=== PATIENT | male | born 1990 | race Caucasian/White ===

== ENCOUNTER → 2020-07-14 10:07 | Outpatient (BNVA) | payer OTHER, SELFPAY | PROVIDERS: Family Provider Family Medicine; PCP Family Medicine; Visit Provider Urology | DX: Z12.5 Encounter for screening for malignant neoplasm of prostate (principal); N34.2 Other urethritis; R79.89 Other specified abnormal findings of blood chemistry; E29.1 Testicular hypofunction | CPT/HCPCS: 81003; 84403; G0103 ==

== ENCOUNTER 2020-07-22 14:15 | Outpatient (CLI) | payer OTHER, SELFPAY ==
[2020-07-22 15:15] LABS: PH Semen 8.5 (7.0-8.0)
[2020-07-22 15:16] LABS: Epithelial Count Semen 0-4 /hpf; Red Blood Count Semen 0-4 /hpf; Sperm Immotility 0 % (50-60); Sperm Non-Progressive Motility 0 % (5-10); Sperm Progressive Motility 0 % (31-34); Sperm Vitality-% Live Sperm 0 %; Viscosity Semen Normal; White Blood Count Semen 0-4 /hpf
[2020-07-22 15:17] LABS: Pathology Referral Yes
== END 2020-07-22 14:16 | disposition home or self-care (01) ==
PROVIDERS: PCP Family Medicine; Visit Provider Urology
DX: E29.1 Testicular hypofunction (principal)
CPT/HCPCS: 80500; 89320

== ENCOUNTER → 2020-08-07 09:51 | Outpatient (BNVA) | payer OTHER, SELFPAY | PROVIDERS: PCP Family Medicine; Referring Provider Urology; Visit Provider Internal Medicine | DX: E23.7 Disorder of pituitary gland, unspecified (principal); R79.89 Other specified abnormal findings of blood chemistry | CPT/HCPCS: 99204 ==

== ENCOUNTER 2021-03-06 08:11 | Outpatient (CLI) | payer OTHER, SELFPAY ==
[2021-03-06 08:35] LABS: Basophils # 0.1 10^3/uL (0.0-0.1); Basophils % 0.8 %; Eosinophils # 0.2 10^3/uL (0.0-0.8); Eosinophils % 2.5 %; Hematocrit 43.5 % (42.0-52.0); Hemoglobin 14.1 g/dL (11.7-16.6); Lymphocytes # 1.6 10^3/uL (0.8-4.8); Lymphocytes % 24.3 %; Mean Corpuscular HGB Conc 32.4 g/dL (30.0-36.0); Mean Corpuscular Hemoglobin 27.4 pg (28.0-34.0); Mean Corpuscular Volume 84.5 fl (80-94); Monocytes # 0.6 10^3/uL (0.2-0.9); Monocytes % 8.9 %; Neutrophils # 4.06 10^3/uL (1.8-7.7); Neutrophils % 63.2 %; Nucleated Red Blood Cells % 0 %; Platelet Count 250 10^3/cmm (130-400); Red Blood Count 5.15 10^6/uL (4.1-5.3); Red Cell Distribution Width 13.3 % (12.1-15.1); White Blood Count 6.4 10^3/uL (4.0-10.0)
[2021-03-06 08:57] LABS: Alanine Aminotransferase 24 U/L (0-41); Albumin Level 4.2 g/dL (3.5-5.2); Alkaline Phosphatase 48 IU/L (40-130); Anion Gap 15.1 (5-19); Aspartate Amino Transferase 18 U/L (0-40); Blood Urea Nitrogen 18 mg/dL (6-20); Calcium 8.8 mg/dL (8.5-10.5); Carbon Dioxide 23 mmol/L (22-29); Chloride 104 mmol/L (98-107); Globulin 2.5 g/dL (1.3-4.6); Glomerular Filtration Rate 113.5 mL/min (90-130); Glucose 84 mg/dL (65-115); Osmolality Calculated 287 mOsm/kg (285-295); Potassium 4.1 mmol/L (3.5-5.1); Sodium 138 mmol/L (136-145); Total Bilirubin 0.4 mg/dL (0.15-1.2); Total Protein 6.7 g/dL (6.6-8.7)
[2021-03-06 09:04] LABS: Testosterone Total 153.3 ng/dL (249-836)
[2021-03-10 15:34] LABS: Testosterone, Free 27.1 pg/mL (46.0-224.0)
== END 2021-03-06 08:12 | disposition home or self-care (01) ==
LOC: LAB 08:14
PROVIDERS: PCP Family Medicine; Visit Provider Internal Medicine
DX: E23.7 Disorder of pituitary gland, unspecified (principal); R79.89 Other specified abnormal findings of blood chemistry
CPT/HCPCS: 80053; 84402; 84403; 85025

== ENCOUNTER → 2021-03-12 10:47 | Outpatient (BNVA) | payer OTHER, SELFPAY | PROVIDERS: PCP Family Medicine; Visit Provider Internal Medicine | DX: R79.89 Other specified abnormal findings of blood chemistry (principal); N52.9 Male erectile dysfunction, unspecified; E29.1 Testicular hypofunction | CPT/HCPCS: 99214 ==

== ENCOUNTER 2021-04-17 07:46 | Outpatient (CLI) | payer OTHER, SELFPAY ==
[2021-04-17 08:05] LABS: Basophils # 0.1 10^3/uL (0.0-0.1); Basophils % 0.9 %; Eosinophils # 0.2 10^3/uL (0.0-0.8); Eosinophils % 2.5 %; Hematocrit 43.3 % (42.0-52.0); Hemoglobin 14.2 g/dL (11.7-16.6); Lymphocytes # 1.8 10^3/uL (0.8-4.8); Lymphocytes % 23.4 %; Mean Corpuscular HGB Conc 32.8 g/dL (30.0-36.0); Mean Corpuscular Hemoglobin 27.8 pg (28.0-34.0); Mean Corpuscular Volume 84.7 fl (80-94); Monocytes # 0.7 10^3/uL (0.2-0.9); Monocytes % 8.3 %; Neutrophils # 5.06 10^3/uL (1.8-7.7); Neutrophils % 64.4 %; Nucleated Red Blood Cells % 0 %; Platelet Count 244 10^3/cmm (130-400); Red Blood Count 5.11 10^6/uL (4.1-5.3); Red Cell Distribution Width 13.2 % (12.1-15.1); White Blood Count 7.9 10^3/uL (4.0-10.0)
[2021-04-17 08:26] LABS: Anion Gap 18.3 (5-19); Blood Urea Nitrogen 15 mg/dL (6-20); Calcium 8.6 mg/dL (8.5-10.5); Carbon Dioxide 21 mmol/L (22-29); Chloride 106 mmol/L (98-107); Glomerular Filtration Rate 113.5 mL/min (90-130); Glucose 88 mg/dL (65-115); Osmolality Calculated 292 mOsm/kg (285-295); Potassium 4.3 mmol/L (3.5-5.1); Sodium 141 mmol/L (136-145)
[2021-04-17 08:32] LABS: Testosterone Total 275.7 ng/dL (249-836)
== END 2021-04-17 07:47 | disposition home or self-care (01) ==
PROVIDERS: PCP Family Medicine; Visit Provider Internal Medicine
DX: R79.89 Other specified abnormal findings of blood chemistry (principal)
CPT/HCPCS: 36415; 80048; 84403; 85025

== ENCOUNTER 2021-06-19 07:45 | Outpatient (CLI) | payer OTHER, SELFPAY ==
[2021-06-19 08:46] LABS: Basophils # 0.1 10^3/uL (0.0-0.1); Eosinophils # 0.2 10^3/uL (0.0-0.8); Eosinophils % 2.4 %; Hematocrit 45.8 % (42.0-52.0); Hemoglobin 14.9 g/dL (11.7-16.6); Lymphocytes # 2.2 10^3/uL (0.8-4.8); Lymphocytes % 26.8 %; Mean Corpuscular HGB Conc 32.5 g/dL (30.0-36.0); Mean Corpuscular Hemoglobin 27.1 pg (28.0-34.0); Mean Corpuscular Volume 83.4 fl (80-94); Mean Platelet Volume 10.2 fL (7.4-10.4); Monocytes # 0.7 10^3/uL (0.2-0.9); Monocytes % 8.5 %; Neutrophils # 5.02 10^3/uL (1.8-7.7); Neutrophils % 61.1 %; Nucleated Red Blood Cells % 0 %; Platelet Count 299 10^3/cmm (130-400); Red Blood Count 5.49 10^6/uL (4.1-5.3); Red Cell Distribution Width 12.5 % (12.1-15.1); White Blood Count 8.2 10^3/uL (4.0-10.0)
[2021-06-19 09:11] LABS: Testosterone Total 388.9 ng/dL (249-836)
== END 2021-06-19 07:46 | disposition home or self-care (01) ==
PROVIDERS: PCP Family Medicine; Visit Provider Internal Medicine
DX: N52.9 Male erectile dysfunction, unspecified (principal); R79.89 Other specified abnormal findings of blood chemistry
CPT/HCPCS: 36415; 84403; 85025; G0103

== ENCOUNTER 2021-06-21 17:51 | Outpatient (CLI) | payer OTHER, SELFPAY ==
[2021-06-21 18:46] LABS: PH Semen 8.5 (7.0-8.0); Sperm Immotility 40 % (50-60); Sperm Non-Progressive Motility 10 % (5-10); Sperm Progressive Motility 50 % (31-34); Viscosity Semen Droplets; Volume Semen 2.5 mL (2-5)
[2021-06-21 18:47] LABS: Pathology Referral Yes
[2021-06-21 18:50] LABS: Side 1 21; Side 2 22; Sperm Count 21.5 mill/mL (40-160)
[2021-06-21 18:51] LABS: Side WITHIN 10% 5
== END 2021-06-21 17:52 | disposition home or self-care (01) ==
LOC: LAB 17:53
PROVIDERS: PCP Family Medicine; Visit Provider Internal Medicine
DX: N52.9 Male erectile dysfunction, unspecified (principal); R79.89 Other specified abnormal findings of blood chemistry
CPT/HCPCS: 80500; 89320

== ENCOUNTER 2021-09-18 07:40 | Outpatient (CLI) | payer OTHER, SELFPAY ==
[2021-09-18 08:29] LABS: Testosterone Total 324.2 ng/dL (249-836)
== END 2021-09-18 07:41 | disposition home or self-care (01) ==
PROVIDERS: PCP Family Medicine; Visit Provider Internal Medicine
DX: N52.9 Male erectile dysfunction, unspecified (principal); E29.1 Testicular hypofunction
CPT/HCPCS: 84403

== ENCOUNTER 2021-11-05 08:04 | Outpatient (CLI) | payer OTHER, SELFPAY ==
[2021-11-05 08:33] LABS: Basophils # 0.1 10^3/uL (0.0-0.1); Basophils % 0.9 %; Eosinophils # 0.3 10^3/uL (0.0-0.8); Hematocrit 41.8 % (42.0-52.0); Hemoglobin 13.9 g/dL (11.7-16.6); Lymphocytes # 1.9 10^3/uL (0.8-4.8); Lymphocytes % 21.7 %; Mean Corpuscular HGB Conc 33.3 g/dL (30.0-36.0); Mean Corpuscular Hemoglobin 27.2 pg (28.0-34.0); Mean Corpuscular Volume 81.8 fl (80-94); Mean Platelet Volume 10.2 fL (7.4-10.4); Monocytes # 0.6 10^3/uL (0.2-0.9); Monocytes % 6.4 %; Neutrophils # 5.91 10^3/uL (1.8-7.7); Neutrophils % 67.7 %; Nucleated Red Blood Cells % 0 %; Platelet Count 265 10^3/cmm (130-400); Red Blood Count 5.11 10^6/uL (4.1-5.3); Red Cell Distribution Width 13.2 % (12.1-15.1); White Blood Count 8.7 10^3/uL (4.0-10.0)
== END 2021-11-05 08:05 | disposition home or self-care (01) ==
LOC: LAB 08:05
PROVIDERS: PCP Family Medicine; Visit Provider Internal Medicine
DX: R79.89 Other specified abnormal findings of blood chemistry (principal)
CPT/HCPCS: 84403; 85025

== ENCOUNTER 2022-01-14 07:57 | Outpatient (CLI) | payer OTHER, SELFPAY ==
[2022-01-14 08:26] LABS: Basophils # 0.1 10^3/uL (0.0-0.1); Basophils % 0.8 %; Eosinophils # 0.2 10^3/uL (0.0-0.8); Eosinophils % 2.2 %; Hematocrit 44.6 % (42.0-52.0); Hemoglobin 14.3 g/dL (11.7-16.6); Lymphocytes # 1.4 10^3/uL (0.8-4.8); Lymphocytes % 19.7 %; Mean Corpuscular HGB Conc 32.1 g/dL (30.0-36.0); Mean Corpuscular Hemoglobin 27.3 pg (28.0-34.0); Mean Corpuscular Volume 85.1 fl (80-94); Monocytes # 0.7 10^3/uL (0.2-0.9); Monocytes % 9.1 %; Neutrophils # 4.89 10^3/uL (1.8-7.7); Neutrophils % 67.8 %; Nucleated Red Blood Cells % 0 %; Platelet Count 235 10^3/cmm (130-400); Red Blood Count 5.24 10^6/uL (4.1-5.3); Red Cell Distribution Width 13.6 % (12.1-15.1); White Blood Count 7.2 10^3/uL (4.0-10.0)
[2022-01-14 08:52] LABS: Testosterone Total 297.2 ng/dL (249-836)
== END 2022-01-14 07:58 | disposition home or self-care (01) ==
PROVIDERS: PCP Family Medicine; Visit Provider Internal Medicine
DX: R53.83 Other fatigue (principal); R79.89 Other specified abnormal findings of blood chemistry
CPT/HCPCS: 36415; 84403; 85025

== ENCOUNTER 2022-09-06 16:22 | Inpatient (IN) | payer OTHER, MEDICAID, SELFPAY ==
[2022-09-06 16:29] VITALS: BP 135/91; PULSE 80; RESP 16; TEMP 36.6; O2SAT 98; BMI 40.1
--- NOTE | 2022-09-06 17:23 | ED.C_ITS ---
HPI - Psych General: Chief Complaint: Psychiatric Symptoms Stated Complaint: MHE Time Seen by Provider: 09/06/22 17:22 Source: patient Mode of arrival: ambulatory History of Present Illness: 32-year-old male presents to the emergency room complaining of suicidal ideation. He says its been going on for a week it is better today he denies any plan or specific intent has just been considering it for the last week. He states been precipitated by stress at work flight with his family members friends and a injection machine operator convinced him to come in today. He is on Zoloft they have not change the dose at all recently he has never previously been admitted to psychiatry or been evaluated for suicidal ideation. MD complaint: suicidal ideation and feels depressed Onset (ago): week(s) (1) Relieving factors: none Exacerbating factors: none Associated psychiatric symptoms: none Associated symptoms: Deny auditory hallucinations, visual hallucinations, delusions, depression, homicidal ideation, suicidal ideation or racing thoughts Treatments prior to arrival: none Review of Systems Const: Denies: fever(s), chills, body aches, change in appetite, fatigue or m alaise ENMT: Denies: throat pain, ear or mastoid pain, nasal discharge or nasal congestion Card: Denies: chest pain, edema, dyspnea on exertion or orthopnea Resp: Denies: dyspnea, productive cough or non-productive cough GI: Denies: abdominal pain, nausea, vomiting, hematemesis, coffee ground emesis, diarrhea, constipation, bloating, hematochezia or melena : Denies: flank pain, dysuria, urinary frequency or urinary urgency Skin/Breast: Denies: rash or pruritus Psych: Denies: depression, visual hallucinations, auditory hallucinations, suicidal ideation or homicidal ideation PFSH ED PFSH: Medical History Anxiety disorder Erectile dysfunction Esophageal stricture Hypogonadism Low testosterone in male Peptic ulcer disease Urethritis Surgical History H/O knee surgery S/P dilatation of esophageal stricture Family History Family/Other CAD (coronary artery disease) Cancer Diabetes Social History (Reviewed 09/06/22 @ 17:31 by MILO Lai Smoking and tobacco status: never smoked Second hand smoke exposure: No Alcohol intake: never Physical Exam Const: GENERAL APPEARANCE: cooperative and comfortable ORIENTATION/CONSCIOUSNESS: Yes awake, Yes oriented to person, Yes oriented to place and Yes oriented to time HENMT: COMMON NORMALS: normocephalic, atraumatic and hearing grossly normal bilaterally HEAD & SCALP: normocephalic and atraumatic Resp: COMMON NORMALS: normal respiratory effort, No retractions, No use of accessory muscles and clear to auscultation bilaterally AUSCULTATION: clear to auscultation bilaterally Cardio: COMMON NORMALS: regular rate, regular rhythm and No murmurs present (Cardio) RATE: regular rate RHYTHM: regular rhythm GI: COMMON NORMALS: Soft to palpation and No hepatosplenomegaly present AUSCULTATION: Yes normoactive bowel sounds PALPATION: Yes Soft to palpation, No Tenderness to palpation present (GI), No Guarding due to palpation present (GI) and Yes No hepatosplenomegaly present Extremity: COMMON NORMALS: normal to inspection, capillary refill normal, no clubbing, cyanosis or edema, no calf tenderness and no pedal edema Neuro: SENSORIUM/ORIENTATION: Yes oriented to person, Yes oriented to place and Yes oriented to time Psych: THOUGHT CONTENT: No delusions Skin: COMMON NORMALS: no rashes or lesions noted GENERAL SKIN EXAM: no rashes or lesions noted Course Vital Signs: Vital signs: Vital Signs Temperature 97.9 F 09/06/22 16:29 Pulse Rate 80 09/06/22 16:29 Respiratory Rate 16 09/06/22 16:29 Blood Pressure 135/91 09/06/22 16:29 Pulse Oximetry 98 09/06/22 16:29 Oxygen Delivery Me thod Room Air 09/06/22 16:29 MDM - Psych Medical Decision Making Suicidal ideation for a week. Concerned this patient has been progressing enough that he finally did come in. Is not previously had psychiatric admissions and he is on moderate dose of Zoloft. Discussed Dr. Mathias will admit for depression and suicidal ideation. Medical Records I reviewed the patient's medical records. Lab Data I reviewed the patient's lab results. Discharge Plan Discharge Patient Disposition: Admitted As Inpatient Clinical Impression: Suicidal ideation, Depression Condition: Stable Coding Level of Care Code ED Hunting And Fishing Guide for Jose Carlos Powell
[2022-09-06 17:51] LABS: Basophils % 0.4 %; Eosinophils # 0.2 10^3/uL (0.0-0.8); Eosinophils % 1.6 %; Hematocrit 46.7 % (42.0-52.0); Hemoglobin 15.2 g/dL (11.7-16.6); Lymphocytes # 1.9 10^3/uL (0.8-4.8); Lymphocytes % 17.5 %; Mean Corpuscular HGB Conc 32.5 g/dL (30.0-36.0); Mean Corpuscular Hemoglobin 26.7 pg (28.0-34.0); Mean Corpuscular Volume 81.9 fl (80-94); Mean Platelet Volume 10.1 fL (7.4-10.4); Monocytes # 0.8 10^3/uL (0.2-0.9); Monocytes % 6.9 %; Neutrophils # 8.14 10^3/uL (1.8-7.7); Neutrophils % 73.3 %; Nucleated Red Blood Cells % 0 %; Platelet Count 328 10^3/cmm (130-400); Red Cell Distribution Width 13.5 % (12.1-15.1); White Blood Count 11.1 10^3/uL (4.0-10.0)
[2022-09-06 18:05] LABS: Alanine Aminotransferase 48 U/L (0-41); Albumin Level 4.6 g/dL (3.5-5.2); Alkaline Phosphatase 67 U/L (40-130); Anion Gap 15.9 (5-19); Aspartate Amino Transferase 29 U/L (0-40); Blood Urea Nitrogen 10 mg/dL (6-20); Calcium 9.6 mg/dL (8.5-10.5); Carbon Dioxide 26 mmol/L (22-29); Chloride 98 mmol/L (98-107); Globulin 3.1 g/dL (1.3-4.6); Glomerular Filtration Rate 97.8 mL/min (90-130); Glucose 89 mg/dL (65-115); Osmolality Calculated 281 mOsm/kg (285-295); Potassium 3.9 mmol/L (3.5-5.1); Sodium 136 mmol/L (136-145); Total Bilirubin 0.6 mg/dL (0.15-1.2); Total Protein 7.7 g/dL (6.6-8.7)
[2022-09-06 18:08] LABS: Acetaminophen < 5.0 ug/mL (10-30); Alcohol Level < 10 mg/dL (0-10); Salicylate < 0.3 mg/dL (3-10)
[2022-09-06 18:36] VITALS: BP 133/86; PULSE 80; RESP 18; TEMP 36.6
[2022-09-06 20:24] VITALS: BP 109/72; PULSE 87; RESP 18; TEMP 36.6; O2SAT 98
[2022-09-07 06:00] VITALS: RESP 15
--- NOTE | 2022-09-07 13:26 | W.PM.NPUH&PS ---
Providers/Chief Complaint Admitting Physician: Judd Mathias MD Primary Care Provider: Dom Jones Chief Complaint: MHE HPI NPU History of Present Illness Bhanu Gipson is a 32 year old male who presented to the emergency department with the following report: Chief Complaint: Psychiatric Symptoms Stated Complaint: MHE Time Seen by Provider: 09/06/22 17:22 Source: patient Mode of arrival: ambulatory History of Present Illness: 32-year-old male presents to the emergency room complaining of suicidal ideation. He says its been going on for a week it is better today he denies any plan or specific intent has just been considering it for the last week. He states been precipitated by stress at work flight with his family members friends and a construction operations manager convinced him to come in today. He is on Zoloft they have not change the dose at all recently he has never previously been admitted to psychiatry or been evaluated for suicidal ideation. MD complaint: suicidal ideation and feels depressed Onset (ago): week(s) (1) Relieving factors: none Exacerbating factors: none Associated psychiatric symptoms: none Associated symptoms: Deny auditory hallucinations, visual hallucinations, delusions, depression, homicidal ideation, suicidal ideation or racing thoughts Treatments prior to arrival: none. He was admitted to the neuropsychiatric unit for definitive treatment of those issues. He reports that he is on Zoloft 100 mg and has only had 1 increased to that dose in the 7 years he has been taking it. The patient presents today reporting recently he has been stressing out and having some abnormal behavior which led to this hospital visit. He denies any previous psychiatric hospitalizations. The patient reports he has had some outpatient services, and he started taking the Zoloft about seven years ago. He has not been on any other psychiatric medications. He denies tobacco use. He reports very occasional alcohol use. He denies marijuana, or any other illicit drug use. He has never been to a drug rehabilitation or had a DUI. He has never had any drug-related charges. The patient reports that seven years ago he was having issues with anger and irritability, often arguing and yelling, and was having a very difficult time controlling his anger. This led to him getting help and being put on the Zoloft, which he reports has been helpful. The patient denies feelings of hopelessness, helplessness, or worthlessness. He denies any sleep issues or loss of enjoyment in activities. He denies passive wish. He reports some suicidal thoughts recently related to stress. He denies any self-injurious behavior. He endorses that his symptoms are related to low-frustration tolerance and an inability to manage those feelings, which has led to unusual behavior for him in how he interacts with others. He denies any auditory or visual hallucinations or paranoia. He denies any nightmares or flashbacks. He reports having some anxiety symptoms in the last couple of weeks related to frustrating situations in his life. PSYCHIATRIC HISTORY: As above. SUBSTANCE ABUSE HISTORY: As above. FAMILY HISTORY: The patient denies any mental health issues in his family. He reports an uncle on his mother?s side of the family had a drinking problem. He denies any suicide attempts or completions. DEVELOPMENTAL HISTORY: The patient denies any issues with his mother?s or delivery of him. He reports that he learned to walk and talk and met his developmental milestones on time. The patient endorses speech therapy in elementary school and some learning support for reading. PSYCHOSOCIAL HISTORY: The patient reports that his mother and father were together when he was born and remain together. He reports he has an older brother who is also from that union. He reports neither of his parents have any other children. He describes his childhood as great. He denies any emotional, physical, or sexual abuse. He reports he experienced some bullying in middle school but denies any major traumatic events. He reports that he graduated from high school and had two semesters in college. He endorses being heterosexual, with his longest relationship being with his of ten years. He reports that he has a 3-year-old daughter and a 7-month-old son. He denies any involvement. He endorses being a Rastafari. He reports his longest employment is ten years at his current job at [employer], which is what has stressed him out recently, as he has not had any advancement. He reports that he lives in a house with his and two children. LEGAL HISTORY: Denied. MEDICAL HISTORY: The patient reports he has had surgery in his left knee. Meds NPU Home Medications Medication Instructions Recorded Confirmed Last Taken Type cetirizine 10 mg capsule (Zyrtec) 10 mg PO DAILY 07/14/20 09/06/22 09/06/22 History fluticasone propionate 50 1 spray intranasal Q12H 07/14/20 09/06/22 Unknown History mcg/actuation nasal spray,suspension (Flonase Allergy Relief) multivitamin (Daily Multi-Vitamin 1 tab PO DAILY 07/14/20 09/06/22 09/06/22 History tablet) omeprazole 20 mg capsule,delayed 20 mg PO DAILY 07/14/20 09/06/22 09/06/22 History release sertraline 100 mg tablet (Zoloft) 100 mg PO DAILY 07/14/20 09/06/22 09/06/22 History Allergies Allergy/AdvReac Type Severity Reaction Status Date / Time buspirone Allergy NA Verified 09/24/21 08:39 vilazodone [From Viibryd] Allergy agitation Verified 09/24/21 08:39 PFSH NPU PFSH: Medical History Anxiety disorder Erectile dysfunction Esophageal stricture Hypogonadism Low testosterone in male Peptic ulcer disease Urethritis Surgical History H/O knee surgery S/P dilatation of esophageal stricture Family History Family/Other CAD (coronary artery disease) Cancer Diabetes Social History Smoking and tobacco status: never smoked Second hand smoke exposure: No Alcohol intake: never Mental Status Exam MSE Comments: This is a tall, obese white male, in hospital scrubs, with adequate grooming and eye contact. No abnormal movements except mild psychomotor retardation. Cooperative with exam in mild distress. Speech was normal rate and volume. Mood described as ?awesome, just tired?; affect congruent and slightly subdued. Thought process, organized. Thought content: patient denied any suicidal or homicidal ideation, there were no delusions reported or noted, patient denied any auditory or visual hallucinations. Attention, concentration, and memory appeared intact, but none were formally tested. Alert and oriented times three. Insight and judgment appear fair and impulse control is limited. Vitals/I&O/Wt Last Vital Signs Temp 98 F 09/06/22 20:24 Pulse 87 05/02/23 20:24 Resp 15 09/07/22 06:00 BP 109/72 09/06/22 20:24 Pulse Ox 98 09/06/22 20:24 O2 Del Method Room Air 09/06/22 20:24 Weight last 48 hrs Weight 157.85 kg Data NPU 09/06/22 17:20 09/06/22 17:20 A&P Assessment and plan (1) Suicidal ideation: (2) Adjustment disorder with mixed disturbance of emotions and conduct: (3) Anxiety: Plan This is a 32-year-old male, with limited psychiatric interventions, other than taking Zoloft for the last seven years which he reports has been helpful, who presents because of recent abnormal behaviors related to low frustration tolerance and anger issues, with a willingness to increase his medication. 1. Continue Zoloft with an increase of 50 mg. 2. Encourage individual, group, and milieu therapy. 3. Continue q-15 minute checks for safety. Involuntary Hold Information 96 Hour Hold: 96 Hour Involuntary Admission: No Attestations NPU Medical Necessity Statement*: Inpatient hospitalization is medically necessary and the clinically appropriate intervention, at this time. We will monitor medication and make changes as indicated. He will be in the hospital for over 2 midnights. Likely length of stay is 1-3 days. Coding Level of Care Code Acute Code for [facility] Fwd Diagnoses Suicidal ideation R45.851 Adjustment disorder with mixed disturbance of emotions and conduct F43.25 Anxiety F41.9
[2022-09-07 14:00] VITALS: BP 130/81; PULSE 92; RESP 18; TEMP 36.7; O2SAT 98
[2022-09-07] MEDS: sertraline 100 mg Tablet PO (16:49)
[2022-09-07] MEDS: sertraline 50 mg Tablet PO (16:49)
[2022-09-07 21:10] VITALS: BP 139/99; PULSE 102; RESP 17; TEMP 36.6; O2SAT 99
[2022-09-08 06:00] VITALS: BP 141/87; PULSE 93; RESP 17; O2SAT 95
[2022-09-08] MEDS: pantoprazole DR 40 mg Tablet PO (10:09)
[2022-09-08] MEDS: sertraline 50 mg Tablet PO (10:09)
[2022-09-08] MEDS: sertraline 100 mg Tablet PO (10:10)
--- NOTE | 2022-09-08 12:15 | W.PM.NPUDCS ---
Diagnoses at Discharge Discharge Diagnosis (1) Suicidal ideation: Status: Resolved (2) Adjustment disorder with mixed disturbance of emotions and conduct: Status: Acute (3) Anxiety: Status: Acute Reason for Visit Reason for Visit: MHE Brief History: History of Present Illness Bhanu Gipson is a 32 year old male who presented to the emergency department with the following report: Chief Complaint: Psychiatric Symptoms Stated Complaint: MHE Time Seen by Provider: 09/06/22 17:22 Source: patient Mode of arrival: ambulatory History of Present Illness:?? 32-year-old male presents to the emergency room complaining of suicidal ideation.? He says its been going on for a week it is better today he denies any plan or specific intent has just been considering it for the last week.? He states been precipitated by stress at work flight with his family members friends and a computer networking instructor convinced him to come in today.? He is on Zoloft they have not change the dose at all recently he has never previously been admitted to psychiatry or been evaluated for suicidal ideation. ? MD complaint: suicidal ideation and feels depressed Onset (ago): week(s) (1) Relieving factors: none Exacerbating factors: none Associated psychiatric symptoms: none Associated symptoms: Deny auditory hallucinations, visual hallucinations, delusions, depression, homicidal ideation, suicidal ideation or racing thoughts Treatments prior to arrival: none. He was admitted to the neuropsychiatric unit for definitive treatment of those issues.? He reports that he is on Zoloft 100 mg and has only had 1 increased to that dose in the 7 years he has been taking it.? The patient presents today reporting recently he has been stressing out and having some abnormal behavior which led to this hospital visit. He denies any previous psychiatric hospitalizations. The patient reports he has had some outpatient services, and he started taking the Zoloft about seven years ago. He has not been on any other psychiatric medications. He denies tobacco use. He reports very occasional alcohol use. He denies marijuana, or any other illicit drug use. He has never been to a drug rehabilitation or had a DUI. He has never had any drug-related charges. The patient reports that seven years ago he was having issues with anger and irritability, often arguing and yelling, and was having a very difficult time controlling his anger. This led to him getting help and being put on the Zoloft, which he reports has been helpful. The patient denies feelings of hopelessness, helplessness, or worthlessness. He denies any sleep issues or loss of enjoyment in activities. He denies passive wish. He reports some suicidal thoughts recently related to stress. He denies any self-injurious behavior. He endorses that his symptoms are related to low-frustration tolerance and an inability to manage those feelings, which has led to unusual behavior for him in how he interacts with others. He denies any auditory or visual hallucinations or paranoia. He denies any nightmares or flashbacks. He reports having some anxiety symptoms in the last couple of weeks related to frustrating situations in his life. PSYCHIATRIC HISTORY: As above. SUBSTANCE ABUSE HISTORY: As above.? FAMILY HISTORY: The patient denies any mental health issues in his family. He reports an uncle on his mother?s side of the family had a drinking problem. He denies any suicide attempts or completions. DEVELOPMENTAL HISTORY: The patient denies any issues with his mother?s or delivery of him. He reports that he learned to walk and talk and met his developmental milestones on time. The patient endorses speech therapy in elementary school and some learning support for reading. PSYCHOSOCIAL HISTORY: The patient reports that his mother and father were together when he was born and remain together. He reports he has an older brother who is also from that union. He reports neither of his parents have any other children. He describes his childhood as great. He denies any emotional, physical, or sexual abuse. He reports he experienced some bullying in middle school but denies any major traumatic events. He reports that he graduated from high school and had two semesters in college. He endorses being heterosexual, with his longest relationship being with his of ten years. He reports that he has a 3-year-old daughter and a 7-month-old son. He denies any involvement. He endorses being a [employer]. He reports his longest employment is ten years at his current job at [employer], which is what has stressed him out recently, as he has not had any advancement. He reports that he lives in a house with his and two children. LEGAL HISTORY: Denied. MEDICAL HISTORY: The patient reports he has had surgery in his left knee. Hospital Course Hospital Course He quickly acclimated to the individual, group and milieu therapies provided.? He had been on Zoloft 100 mg daily for 6/7 years reportedly and has been fairly stable. No active treatment however and recent stressors led to some concerning thoughts and statements. However being hospitalized and having someone to talk to gave him some relief. He was voluntary and was not really wanting to stay but did allow us to make adjustments and monitor him for a couple of days. Zoloft was increased to 150 mg p.o. daily. He had modest improvement during the hospitalization and was able to contract for safety outside of the hospital prior to discharge.? He worked with the social work team on psychiatric outpatient resources and follow-ups.? During hospitalization he had routine laboratory studies which were within normal limits except for a few outliers including his urinalysis.? Additionally had a general medical evaluation which is also within normal limits and revealed no new acute processes. Discharge summary: At the time of discharge, he was absent lethality and psychosis.? Mood and anxiety were well managed.? Patient endorsed a plan to avoid all drugs of abuse and follow-up with the aftercare recommendations of the treatment team.? Patient was evaluated and deemed to be absent credible lethality, and had achieved the maximum benefit from an inpatient hospitalization, so was discharged. Involuntary Hold Information 96 Hour Hold: 96 Hour Involuntary Admission: No Mental Status Exam MSE Comments: This is a tall, obese white male, in hospital scrubs, with adequate grooming and eye contact. No abnormal movements except mild psychomotor retardation. Cooperative with exam in mild distress. Speech was normal rate and volume. Mood described as pretty good; affect congruent and slightly subdued. Thought process, organized. Thought content: patient denied any suicidal or homicidal ideation, there were no delusions reported or noted, patient denied any auditory or visual hallucinations. Attention, concentration, and memory appeared intact, but none were formally tested. Alert and oriented times three. Insight and judgment appear fair and impulse control is limited. Discharge Data Studies Completed and Pending: Pending at discharge Category Date Time Status Drug Screen, Urin e Stat Lab 09/06/22 18:37 Ordered Laboratory Results WBC 11.1 10^3/uL (4.0 -10.0) H 09/06/22 17:20 RBC 5.70 10^6/uL (4.1 -5.3) H 09/06/22 17:20 Hgb 15.2 g/dL (11.7-1 6.6) 09/06/22 17:20 Hct 46.7 % (42.0-52.0 ) 09/06/22 17:20 MCV 81.9 fl (80-94) 09/06/22 17:20 MCH 26.7 pg (28.0-34. 0) L 09/06/22 17:20 MCHC 32.5 g/dL (30.0-3 6.0) 09/06/22 17:20 RDW 13.5 % (12.1-15.1 ) 09/06/22 17:20 Plt Count 328 10^3/cmm (130 -400) 09/06/22 17:20 MPV 10.1 fL (7.4-10.4 ) 09/06/22 17:20 Neut % (Auto) 73.3 % 09/06/22 17:20 Lymph % (Auto) 17.5 % 09/06/22 17:20 Foard % (Auto) 6.9 % 09/06/22 17:20 Eos % (Auto) 1.6 % 09/06/22 17:20 Baso % (Auto) 0.4 % 09/06/22 17:20 Neut # (Auto) 8.14 10^3/uL (1.8 -7.7) H 09/06/22 17:20 Lymph # (Auto) 1.9 10^3/uL (0.8- 4.8) 09/06/22 17:20 Foard # (Auto) 0.8 10^3/uL (0.2- 0.9) 09/06/22 17:20 Eos # (Auto) 0.2 10^3/uL (0.0- 0.8) 09/06/22 17:20 Baso # (Auto) 0.0 10^3/uL (0.0- 0.1) 09/06/22 17:20 Nucleated RBC % (a uto) 0 % 09/06/22 17: Nucleated RBCs # 0.0 /100WBC 09/06/22 17:20 Sodium 136 mmol/L (136-1 45) 09/06/22 17:20 Potassium 3.9 mmol/L (3.5-5 .1) 09/06/22 17:20 Chloride 98 mmol/L (98-107 ) 09/06/22 17:20 Carbon Dioxide 26 mmol/L (22-29) 09/06/22 17:20 Anion Gap 15.9 (5-19) 09/06/22 17:20 BUN 10 mg/dL (6-20) 09/06/22 17:20 Creatinine 0.9 mg/dL (0.7-1. 2) 09/06/22 17:20 GFR Calculation 97.8 mL/min (90-1 30) 09/06/22 17:20 Glucose 89 mg/dL (65-115) 09/06/22 17:20 Calculated Osmolal ity 281 mOsm/kg (285- 295) L 09/06/22 17:20 Calcium 9.6 mg/dL (8.5-10 .5) 09/06/22 17:20 Total Bilirubin 0.6 mg/dL (0.15-1 .2) 09/06/22 17:20 AST 29 U/L (0-40) 09/06/22 17:20 ALT 48 U/L (0-41) H 09/06/22 17:20 Alkaline Phosphata se 67 U/L (40-130) 09/06/22 17:20 Total Protein 7.7 g/dL (6.6-8.7 ) 09/06/22 17:20 Albumin 4.6 g/dL (3.5-5.2 ) 09/06/22 17:20 Globulin 3.1 g/dL (1.3-4.6 ) 09/06/22 17:20 Salicylates < 0.3 mg/dL (3-10 ) L 09/06/22 17:20 Acetaminophen < 5.0 ug/mL (10-3 0) L 09/06/22 17:20 Ethyl Alcohol < 10 mg/dL (0-10) 09/06/22 17:20 Vitals: Last Vital Signs Temp 97.9 F 09/07/22 21:10 Pulse 93 09/08/22 06:00 Resp 17 09/08/22 06:00 BP 141/87 09/08/22 06:00 Pulse Ox 95 09/08/22 06:00 O2 Del Method Room Air 09/08/22 06:00 Discharge Plan Discharge Patient Disposition: Home Condition: Stable Prescriptions: New sertraline 100 mg Tablet 150 mg PO DAILY 30 Days Qty: 45 1RF Continued Zyrtec 10 mg capsule 10 mg PO DAILY fluticasone propionate [Flonase Allergy Relief] 50 mcg/actuation spray,suspension 1 spray intranasal Q12H Rx Instructions: administer into each nostril omeprazole 20 mg capsule,delayed release(DR/EC) 20 mg PO DAILY multivitamin [Daily Multi-Vitamin] Tablet 1 tab PO DAILY Discontinued sertraline [Zoloft] 100 mg tablet 100 mg PO DAILY Discharge Orders: Discharge Order (Routine); Ordered 09/08/22 Ordered By: Judd Mathias Referrals: [facility] [Outside] - 09/22/22 8:30 am (Initial assessment for services) Dom Jones [Primary Care Provider] - 1-3 days (The clinic is closed today. Please call the number listed tomorrow for a follow up.) Discharge Diet: Regular Discharge Activity: Resume usual activity Patient Instructions: Suicide Prevention (DC), Opioid Safety, Pain Management Discharge Attestations NPU Time Spent in Discharge Care*: less than 30 min Specific Discharge Activities: Specific discharge activities: educating patient, discussing with case assistant/social workers/dc planners, documenting/other paperwork and evaluating patient/reviewing data Coding Level of Care Code Acute Chg FW DC note Diagnoses Suicidal ideation R45.851 Adjustment disorder with mixed disturbance of emotions and conduct F43.25 Anxiety F41.9
[2022-09-08 12:26] VITALS: BP 141/87; PULSE 93; RESP 17; O2SAT 95
[2022-09-08 12:27] VITALS: BP 141/87; PULSE 93; RESP 17; TEMP 36.6; O2SAT 95
== END 2022-09-08 13:19 | disposition home or self-care (01) | DRG 882 ==
LOC: ER 17:43 → NP 17:54
PROVIDERS: Physician Assistant; Admitting Provider Psychiatry & Neurology Psychiatry; Emergency Provider Family Medicine; PCP Family Medicine; Visit Provider Psychiatry & Neurology Psychiatry
DX: F43.25 Adjustment disorder with mixed disturbance of emotions and conduct (principal); R45.851 Suicidal ideations; F41.9 Anxiety disorder, unspecified
CPT/HCPCS: 36415; 80053; 80307; 85025; 97165; 99285

== ENCOUNTER → 2023-03-07 10:59 | Outpatient (BNVA) | payer MEDICAID, SELFPAY | PROVIDERS: PCP Family Medicine; Visit Provider Family Medicine | DX: R06.02 Shortness of breath (principal); R94.2 Abnormal results of pulmonary function studies; J98.4 Other disorders of lung | CPT/HCPCS: 71046 ==

== ENCOUNTER 2023-04-04 13:00 | Outpatient (CLI) | payer MEDICAID, SELFPAY | END 2023-04-04 13:01 | disposition home or self-care (01) | LOC: SLEEP 04-05 13:16 | PROVIDERS: PCP Family Medicine; Visit Provider Family Medicine | DX: G47.33 Obstructive sleep apnea (adult) (pediatric) (principal); R06.83 Snoring | CPT/HCPCS: G0399 ==

== ENCOUNTER → 2023-12-28 12:12 | Outpatient (BNVA) | payer MEDICAID, OTHER, SELFPAY | PROVIDERS: PCP Family Medicine; Visit Provider Family Medicine | DX: E66.01 Morbid (severe) obesity due to excess calories (principal) | CPT/HCPCS: 80053; 80061; 84439; 84443; 85025 ==